=== PATIENT | female | born 1995 | race Caucasian/White ===

== ENCOUNTER 2023-03-28 13:25 | Outpatient (CLI) | payer OTHER, SELFPAY ==
--- NOTE | ~2023-03-28 | US_ITS ---
Pelvic ultrasound. Clinical History: First trimester , establish dates and viability Technique: Realtime transabdominal and transvaginal scanning of the pelvis was performed. Color flow Doppler and Doppler spectral analysis were performed. Findings: The uterus is anteverted, and contains an intrauterine gestation. [place]-rump length of 1.3 cm corresponds to an estimated gestational age of 7 weeks 4 days. heart rate is 148 bpm.. Neither ovary seen. No adnexal mass seen. There is no evidence of free fluid in the cul de sac. Impression: Live intrauterine gestation with estimated gestational age of 7 weeks 4 days. heart rate is 148 bpm. Sonographic ASPEN is 11/10/2023. Reviewed, dictated and finalized at location M. ET COUNTER Impression: Live intrauterine gestation with estimated gestational age of 7 weeks 4 days. F etal heart rate is 148 bpm. Sonographic ASPEN is 11/10/2023.
== END 2023-03-28 13:26 ==
PROVIDERS: PCP Advanced Practice Midwife; Visit Provider Advanced Practice Midwife
DX: O36.80X0 Pregnancy with inconclusive fetal viability, not applicable or unspecified (principal); Z3A.01 Less than 8 weeks gestation of pregnancy
CPT/HCPCS: 76801

== ENCOUNTER 2023-06-10 10:26 | Outpatient (CLI) | payer OTHER, SELFPAY ==
--- NOTE | ~2023-06-10 | US_ITS ---
US OB /maternal detail DATE: 06/10/2023 11:25 INDICATION: anatomy screen TECHNIQUE: Real-time imaging and Doppler analysis COMPARISON: 03/28/2023 obstetrical ultrasound FINDINGS: Live poole intrauterine gestation, fetus in breech presentation. Posterior placenta, lower margin 4.5 cm above the internal os. Subjectively normal amount of amniotic fluid. cerebral ventricles, cerebellum, cisterna magna appear normal. Normal appearance of spine . Normal nuchal fold. upper lip is normal. Four-chamber heart. heart rate 137 bpm. diaphragm is intact. Fluid demonstrated fet al stomach and urinary bladder. The kidneys are normal in appearance without hydronephrosis. Three-vessel umbilical cord with normal insertion at abdominal wall. Four extremities demonstrated. Biparietal diameter 3.86 cm; 17 weeks 5 days Head circumference 14.94 cm; 18 weeks 0 days Abdominal circumference 13.30 cm; 18 weeks 6 days Femur length 2.57 cm; 17 weeks 6 days Composite age by Hadlock formula is 18 weeks 1 day +/- 1 week 2 days with ASPEN of 11/10/2023 Estimated weight is 232.3 plus or minus 34.84 grams. EFW-GP 53.7% HC/AC 1.12 (within normal range of 1.08-1.27) FL/HC 17.22 (within normal range of 15.84-18.04) IMPRESSION: Normal anatomy screen Reviewed, dictated and finalized at Location A. Reviewed, dictated and finalized at location A. IMPRESSION: Normal anatomy screen
== END 2023-06-10 10:27 ==
PROVIDERS: PCP Nurse Practitioner Women's Health; Visit Provider Nurse Practitioner Women's Health
DX: Z36.9 Encounter for antenatal screening, unspecified (principal); Z3A.00 Weeks of gestation of pregnancy not specified
CPT/HCPCS: 76805

== ENCOUNTER 2023-09-06 08:26 | Outpatient (CLI) | payer OTHER, SELFPAY ==
--- NOTE | ~2023-09-06 | US_ITS ---
COMPLETE AND LIMITED MATERNAL ULTRASOUND (Doppler ultrasound interrogation techniques used as n eeded for this exam.) Ordering provider: Nidia Bro CNM History: . Size greater than dates . Comparison: None. Findings: : Single intrauterine fetus with heart rate measured at 153 bpm which is within normal limits. Single live fetus of Vertex presentation. Longitudinal lie. Heart (4 chambers): Seen and unremarkable. Outflow tracts are normal. -- BIOMETRICS: BPD: 78.6 mm = 31 weeks and 4 days. HC: 284.4 mm = 31 weeks and 2 days FL: 57.9 mm = 30 weeks and 2 days. AC: 268.8 mm = 31 weeks. HC/AC: 1.06 FL/BPD: 73.65 FL/AC: 21.53 Mean US age is 31 weeks for an ASPEN on November 08, 2023. Extrapolated weight is 16 47 gm. EFW/GP 41.1%. Amniotic fluid volume is subjectively within normal limits. SOLOMON is 15.5 cm. 5th percentile 9 cm and 9 5 percentile is 23 0.4 cm. No evidence for significant placental anomalies including placenta previa. Placenta is posterior. IMPRESSION: No definite abnormality. Reviewed, dictated and finalized at location A. IMPRESSION: No definite abnormality.
== END 2023-09-06 08:27 ==
PROVIDERS: PCP Advanced Practice Midwife; Visit Provider Advanced Practice Midwife
DX: O36.63X0 Maternal care for excessive fetal growth, third trimester, not applicable or unspecified (principal); Z3A.00 Weeks of gestation of pregnancy not specified
CPT/HCPCS: 76816

== ENCOUNTER 2023-10-25 09:08 | Outpatient (CLI) | payer OTHER, SELFPAY ==
--- NOTE | ~2023-10-25 | US_ITS ---
EXAMINATION: US OB follow up DATE: 10/25/2023 09:27 INDICATION: Estimated size less than expected for estimated gestational age during third trimes ter TECHNIQUE: Real-time ultrasound of the pelvis was performed. The interpreting radiologist was not pre sent for the study. COMPARISON: None. FINDINGS: There is a single living fetus in vertex presentation. The placenta is posterior and not low-lying. heart rate is 139 beats per minute (bpm). The amniotic fluid index is 19.0 cm, which is normal (5th%-95%: 7.5-24.4 cm at the weeks estimated gestational age). The following biometric data were obtained: BPD: 8.9 cm -> 35 weeks 6 days Head circumference: 33.7 cm -> 38 weeks 4 days Abdominal circumference: 33.0 cm -> 36 weeks 6 days Femur length: 7.1 cm -> 36 weeks 3 days These measurements are concordant. Head circumference to abdominal circumference ratio: 1.02 (normal range 0.92-1.05). Estimated weight: 3050 g (+/-) 457 g or 6 lbs. 12 oz. (+/-) 16 oz. IMPRESSION: 1. Single living fetus in vertex presentation with heart rate of 140 bpm. 2. Normal amniotic fluid index of 19.0 cm. 3. Estimated weight is 38th percentile by Hadlock criteria when 11/10/2023 is used as the estima [place] date of delivery (ASPEN). Please correlate with clinical information or earlier ultrasounds for mos t accurate ASPEN. Reviewed, dictated and finalized at location A. IMPRESSION: 1. Single living fetus in vertex presentation with heart rate of 140 bpm. 2. Normal amniotic fluid index of 19.0 cm. 3. Estimated weight is 38th percentile by Hadlock criteria when 11/10/2023 is used as the estimated date of delivery (ASPEN). Please correlate with clinica l information or earlier ultrasounds for most accurate ASPEN.
== END 2023-10-25 09:09 ==
LOC: MICIMG 09:09
PROVIDERS: PCP Advanced Practice Midwife; Visit Provider Advanced Practice Midwife
DX: O36.5930 Maternal care for other known or suspected poor fetal growth, third trimester, not applicable or unspecified (principal)
CPT/HCPCS: 76816

== ENCOUNTER 2023-11-11 06:02 | Inpatient (IN) | payer OTHER, SELFPAY ==
[2023-11-11] VITALS (133 sets, daily range): BP systolic 93–167; BP diastolic 45–147; PULSE 65–238; RESP 16–18; TEMP 36.2–36.8; O2SAT 79–100; BMI 38.7
[2023-11-11 07:01] LABS: Basophils Absolute Auto 0.1 K/mm3 (0.0-0.1); Basophils Percent Auto 0.4 % (0.2-1.2); Eosinophils Absolute Auto 0.1 K/mm3 (0-0.3); Eosinophils Percent Auto 0.4 % (0-4.4); Hematocrit 33.5 % (37.0-47.0); Hemoglobin 10.9 g/dL (12.0-15.0); Immature Granulocyte Absolute 0.09 K/mm3 (0.00-0.031); Immature Granulocyte Percent A 0.7 % (0-0.5); Lymphocytes Absolute Auto 1.71 K/mm3 (0.9-3.2); Lymphocytes Percent Auto 12.9 % (18.3-44.2); Mean Corpuscular HGB Conc 32.5 g/dl (32-36); Mean Corpuscular Hemoglobin 26.1 pg (26-34); Mean Corpuscular Volume 80.3 fl (80-100); Mean Platelet Volume 10.9 fl (7.4-10.4); Monocytes Absolute Auto 0.7 K/mm3 (0.1-0.6); Monocytes Percent Auto 5.1 % (2.6-8.5); Neutrophils Absolute Auto 10.7 K/mm3 (1.3-6.7); Neutrophils Percent Auto 80.5 % (45.5-73.1); Platelet Count Result 274 k/mm3 (150-375); Red Blood Count 4.17 M/mm3 (4.2-5.4); Red Cell Distribution Width 14.2 % (11.5-14.5); White Blood Count 13.3 K/mm3 (4.5-10.0)
--- NOTE | 2023-11-11 07:09 | WPDOBADMIT ---
Obstetrics - Admit Note Admission Note: record reviewed. No pertinent additions to the history and/or any subsequent changes in the physical findings that are not consistent with the expected course of the were found. Additions to the history and/or subsequent changes in the physical findings follow. None.
--- NOTE | 2023-11-11 07:16 | WPDANESEPP ---
Anes - Eval Pre Procedure Procedure: Labor epidural Date/Time: 11/11/23 07:16 Surgeon: Destiny Preop Diagnosis: Pain during labor Pre Op Diagnosis: IOL Patient Data Age: 28 Gender: F Height: Weight: Last Vital Signs Pulse 127 H 11/11/23 06:31 BP 129/84 11/11/23 06:31 Allergies Allergy/AdvReac Type Severity Reaction Status Date / Time Penicillins Allergy Rash Verified 10/06/23 12:32 Home Medications Medication Instructions Recorded Confirmed Type prenat.vits,arti,ksr-ofar-zfurk 1 tablet 10/06/23 History Laboratory Tests 11/11/23 06:51 WBC 13.3 H K/mm3 (4.5-10.0) RBC 4.17 L M/mm3 (4.2-5.4) Hgb 10.9 L g/dL (12.0-15.0) Hct 33.5 L % (37.0-47.0) MCV 80.3 fl (80-100) MCH 26.1 pg (26-34) MCHC 32.5 g/dl (32-36) RDW 14.2 % (11.5-14.5) Plt Count 274 k/mm3 (150-375) MPV 10.9 H fl (7.4-10.4) Immature Gran % (Auto) 0.7 H % (0-0.5) Neut % (Auto) 80.5 H % (45.5-73.1) Lymph % (Auto) 12.9 L % (18.3-44.2) [place] % (Auto) 5.1 % (2.6-8.5) Eos % (Auto) 0.4 % (0-4.4) Baso % (Auto) 0.4 % (0.2-1.2) Lymph # (Auto) 1.71 K/mm3 (0.9-3.2) [place] # (Auto) 0.7 H K/mm3 (0.1-0.6) Eos # (Auto) 0.1 K/mm3 (0-0.3) Baso # (Auto) 0.1 K/mm3 (0.0-0.1) Abs Immat Gran (auto) 0.09 H K/mm3 (0.00-0.031) Absolute Neuts (auto) 10.7 H K/mm3 (1.3-6.7) Absolute Nucleated RBC 0.000 K/mm3 (0.0-0.012) Nucleated RBC % 0.0 % (0.0-0.2) RPR Pending HIV 1&2 Ab/P24 Ag 4thGn Pending Blood Type Pending Antibody Screen Pending Patient hx anesthesia problems: none Family hx anesthesia problems: none Results Review: All pre-operative results and documents have been reviewed as part of the pre-operative evaluation. [facility], [facility] Family History Family History Father Hypertension Diabetes mellitus Skin cancer Social History Social History Substance use: never Spiritual care concerns: No Exam Day of Procedure 11/11/23 07:16 Patient weight: overweight Heart: regular rate and rhythm Lungs: clear to auscultation Airway: Mallampati scale Neurological: alert and oriented
[2023-11-11] MEDS: LACTATED RINGERS 1,000 ML 125 ML IV CONT ×2 (07:21→12:40)
[2023-11-11] MEDS: OXYTOCIN 30 UNITS/NS 500 ML 30 UNITS/500 ML BAG IV CONT (07:23)
--- NOTE | 2023-11-11 07:28 | LDADM ---
This patient, Smitha [place], was admitted to Labor/Delivery/Recovery 108 on 11/11/23 at 06:02. Plans for labor, pain management and were discussed with patient. Patient/family oriented to hospital policies and general routines including ID bracelet, bed and alarms, visiting hours, pain management, procedures, bathroom and other care routines, personal items, smoking policy, room service/diet and guest tray routines, infant security routines, and visiting hours. Patient/Family are encouraged to report perceived risks to care and to ask questions if they do not understand what they are told or what they should do. See OBIX for further documentation.
--- NOTE | 2023-11-11 07:48 | PM.OBPNLAB ---
Pain Control Date/time seen: 11/11/23 07:45 Pain control: tolerating well Pelvic Exam Dilation (cm): 3 Effacement (%): 70 station: -2 Amniotic membrane status: Intact Comments: head well applied. Contractions Monitor mode: External Contraction pattern: Irregular Contraction phase: Contraction Status status: Category l Assessment and Plan Pitocin rate (mU/min): 2 Assessment: induction ongoing Plan: continuous present management Comments: CNM to bedside. Discussed plan of care and option for amniotomy. Discussed risks, benefits, and expectations of breaking water. Patient is agreeable. Amniotomy performed and there was a small return of clear amniotic fluid. Patient tolerated procedure well. Anticipate vaginal . Dr. Eldon Nair updated.
[2023-11-11 08:37] LABS: HIV 1/2 Ab P24 Ag Result Negative (Negative)
[2023-11-11 08:38] LABS: Rapid Plasma Reagin Non-Reactive (NonReactive)
[2023-11-11] MEDS: ONDANSETRON INJ 4 MG/2 ML VIAL IV PUSH (10:27)
[2023-11-11] MEDS: fentaNYL CITRATE INJ (*CRX) 100 MCG/2 ML VIAL 50 MCG IV PUSH (10:29)
[2023-11-11] MEDS: LACTATED RINGERS 1,000 ML 999 ML IV CONT (10:31)
--- NOTE | 2023-11-11 17:08 | P.PCNOB_ITS ---
OB - Vaginal Delivery Note Procedure Delivery date: 11/11/23 Events: Elective Induction of Labor Induction method: Per Pitocin Protocol Delivery augmentation: Rupture of Membranes Delivery monitor: External FHT and Internal Uterine Route of delivery: Episiotomy description: None Laceration Description: Perineal - 2nd Degree (left sulcal extension) Delivery repair: vicryl Specimen: No Quantitative Blood Loss (ml): 250 Anesthesia type: Epidural Disposition: Floor Complications: No immediate complications Narrative: Smitha Arrived for elective induction at term. She was given Pitocin to achieve regular uterine contractions. She made quick change to complete dilation and pushed well with contractions. She Steadily brought the head to complete crown. She delivered the head and there was excellent restitution. There was smooth delivery of the anterior and posterior shoulders followed by the remainder of the infant. The was placed on the maternal abdomen and dried and stimulated by nursery staff. After 2 minutes of life, the cord was doubly clamped and cut. Cord blood, cord gases, and cord segment were obtained. there is spontaneous delivery of the placenta. The vulva and vaginal mucosa were inspected and a second-degree perineal /sulcal tear was identified. This was repaired in usual fashion. There was excellent uterine tone and hemostasis. All delivery counts correct. Mother and baby skin to skin in the delivery room. [place] Baby Date of : 11/11/23 Time of : 16:26 Gestational Age by Date: 40 gender: Female Weight (pounds): 8 Weight (ounces): 4 presentation: vertex position: Left Occiput Anterior Placenta delivery description: Spontaneous and Normal Configuration Cord Vessel Description: 3 Vessels and Delayed Cord Clamping score one minute: 8 score five minutes: 8
--- NOTE | 2023-11-11 17:15 | PM.OBDSVD ---
DS: Admitting Diagnosis Discharge Date 11/13/23 Admitting Diagnosis 28 y.o. at 40 weeks 5 days. IOL Rubella Non-Immune DS: Discharge Diagnosis Discharge Diagnosis (1) (normal spontaneous vaginal delivery): Code(s): O80 - Encounter for full-term uncomplicated delivery Status: Acute (2) Rubella non-immune status, delivered, current hospitalization: Code(s): O99.892 - Other specified diseases and conditions complicating childbirth; Z28.39 - Other underimmunization status Status: Acute (3) Patient is a currently breast-feeding mother: Code(s): Z39.1 - Encounter for care and examination of lactating mother Status: Acute OB - DS: Summary Hospital Course Hospital Course: Uncomplicated OB Procedures : Ultrasound OB Procedures Intrapartum: Spontaneous Vag Delivery OB Procedures: : None and Rubella lg Peripartum Data Infant Delivery Method: Natural Vaginal Laceration Description: Perineal - 2nd Degree (left sulcal extension) Episiotomy description: None complications: none Status at Discharge Functional status at discharge: independent ambulation Overall status at discharge: patient is progressing back to baseline Time Spent with Patient Time attestation: Total time spent providing and/or coordinating discharge services: Exam Narrative: Alert and oriented. Mood is pleasant and cooperative. Perineum with minimal edema. Fundus firm and below umbilicus. Const: General: cooperative, healthy appearing, no acute distress and alert Orientation/consciousness: patient oriented x3 Limitations: no limitations Resp: Effort & Inspection: normal respiratory effort and able to speak in complete sentences Cardio: Rate: regular rate GI: Inspection: normal to inspection : General: Yes bladder normal to palpation External Female Exam: other (lochia WNL) Other: Fundus firm and below U Skin: General skin exam: normal color and no rashes or lesions noted Neuro: General: patient oriented x3 and moves all extremities Cognition (Neuro): normal cognition Extrem: General: normal to inspection and no calf tenderness Psych: Appearance: grossly normal Mental Status: mental status grossly normal Affect: normal affect Thought process: Normal thought process present DS: Data Data Completed and Pending Labs on day of discharge: Labs from last 24 hours 11/11/23 06:51 WBC 13.3 H RBC 4.17 L Hgb 10.9 L Hct 33.5 L MCV 80.3 MCH 26.1 MCHC 32.5 RDW 14.2 Plt Count 274 MPV 10.9 H Immature Gran % (Auto) 0.7 H Neut % (Auto) 80.5 H Lymph % (Auto) 12.9 L [place] % (Auto) 5.1 Eos % (Auto) 0.4 Baso % (Auto) 0.4 Lymph # (Auto) 1.71 [place] # (Auto) 0.7 H Eos # (Auto) 0.1 Baso # (Auto) 0.1 Abs Immat Gran (auto) 0.09 H Absolute Neuts (auto) 10.7 H Absolute Nucleated RBC 0.000 Nucleated RBC % 0.0 RPR Non-reactive HIV 1&2 Ab/P24 Ag 4thGn Negative Blood Type A Positive Antibody Screen Negative Discharge Plan Discharge Attending physician on discharge: Marbella Dixon Consulting providers: Nidia Bro Discharging Clinician: Nidia Bro Anticipated Discharge Date/Time: 11/11/23 17:19 Patient Disposition: Home, Self-Care Activity: may shower and pelvic rest Diet: regular Wound Care Instructions: follow printed instructions Discharge Instructions: Continue taking your vitamin and any other supplements as previously directed (Examples: Iron, Vitamin D). You may take Tylenol 1000mg over the counter every 6 hours as needed for pain. Do not exceed 4000mg of Tylenol daily. You may continue using tucks pads and dermoplast spray if needed for a few more days. Depression Notify provider for signs or symptoms. These may include- Feelings: Feeling anxious, angry, hopeless, guilt, or loss of interest/pleasure in activities you normally enjoy. Mood swings
--- NOTE | 2023-11-11 19:11 | OBPPTRN ---
Patient transferred to post room #286 via w/c. Support person present. Oriented to unit, room, information board, rooming in, admission packet and security measures. Patient verbalizes understanding.
[2023-11-12 03:50] VITALS: BP 108/70; PULSE 87; RESP 16; TEMP 36.9
[2023-11-12 04:39] LABS: Hematocrit 30.4 % (37.0-47.0); Hemoglobin 9.8 g/dL (12.0-15.0)
[2023-11-12 07:45] VITALS: BP 130/80; PULSE 94; RESP 18; TEMP 37.2; O2SAT 97
--- NOTE | 2023-11-12 08:00 | PM.OBPNVD ---
OB - PN: Subj Subjective Date/time seen: 11/12/23 08:00 Interval history: Post Day 1 from . Doing well. Urinating without difficulty. Denies passing any large clots. Denies dizziness with ambulating. Tolerating po food and fluids. Bonding with . Patient comments: pain well controlled baby status: nursing well feeding status: exclusively breast feeding OB - PN: Obj Data Labs 11/12/23 03:22 Labs: Laboratory Results - last 24 hr 11/11/23 11/12/23 06:51 03:22 Hgb 9.8 L Hct 30.4 L RPR Non-reactive HIV 1&2 Ab/P24 Ag 4thGn Negative OB - PN A/P Assessment and Plan (1) (normal spontaneous vaginal delivery): Code(s): O80 - Encounter for full-term uncomplicated delivery Status: Acute (2) Rubella non-immune status, delivered, current hospitalization: Code(s): O99.892 - Other specified diseases and conditions complicating childbirth; Z28.39 - Other underimmunization status Status: Acute Assessment and Plan: Plan MMR on Discharge (3) Patient is a currently breast-feeding mother: Code(s): Z39.1 - Encounter for care and examination of lactating mother Status: Acute Plan day: 1 Plan: routine care Time Spent With Patient Time: Total time spent is greater than 50% in coordination of care (as documented) at patient's floor/unit and/or counseling patient: Review of Systems Review of Systems: All systems reviewed & are unremarkable except as noted in HPI and below Exam Narrative: Alert and oriented. Mood is pleasant and cooperative. Perineum with minimal edema. Fundus firm and below umbilicus. Const: General: cooperative, healthy appearing, no acute distress and alert Orientation/consciousness: patient oriented x3 Limitations: no limitations Resp: Effort & Inspection: normal respiratory effort and able to speak in complete sentences Cardio: Rate: regular rate GI: Inspection: normal to inspection : General: Yes bladder normal to palpation External Female Exam: other (lochia WNL) Bimanual exam- vagina & uterus: bladder normal to palpation Other: Fundus firm and below U Skin: General skin exam: normal color and no rashes or lesions noted Neuro: General: patient oriented x3 and moves all extremities Cognition (Neuro): normal cognition Extrem: General: normal to inspection and no calf tenderness Psych: Appearance: grossly normal Mental Status: mental status grossly normal Affect: normal affect Thought process: Normal thought process present
[2023-11-12] MEDS: IBUPROFEN 600 MG TABLET PO ×2 (08:07→16:58)
[2023-11-12] MEDS: DOCUSATE SODIUM 100 MG CAPSULE PO ×2 (08:07→16:58)
[2023-11-12] MEDS: MULTIVIT/MIN/PREN/FOL AC/IRON TABLET 1 TAB PO (08:07)
[2023-11-12] MEDS: POLYSACCHARIDE IRON COMPLEX 150 MG CAPSULE PO ×2 (08:07→16:58)
--- NOTE | 2023-11-12 10:27 | WPDANLDPN2 ---
Anes-Prog Note L&D Date/Time: 11/12/23 10:27 Comfortable throughout: labor Neuraxial method: epidural Epidural/Spinal procedure site: clean & non-tender Neuro status: Neuro function grossly intact. Cardiovascular status: normal Respiratory status: normal Airway patency: baseline Mental status: baseline Post-Op hydration status: normal Vital Signs: Last Vital Signs Temp 99.0 F 11/12/23 07:45 Pulse 94 11/12/23 07:45 Resp 18 11/12/23 07:45 BP 130/80 11/12/23 07:45 Pulse Ox 97 11/12/23 07:45 O2 Del Method Room Air 11/11/23 19:30 Pain score (VAS): 3 I/O: Intake & Output 11/11/23 11/12/23 11/12/23 23:59 07:59 15:59 Intake Total 218.2 Output Total 750 Balance -531.8 Post-procedural complaints: other (pt has history of sciatic pain, primarily to right side. pt states that since delivery she has experienced left sided sciatic pain.) Patient feedback: Patient satisfied with anesthetic care.
[2023-11-12 12:00] VITALS: BP 134/89; PULSE 96; RESP 16; TEMP 36.6; O2SAT 98
[2023-11-12 20:00] VITALS: BP 127/87; PULSE 103; RESP 18; TEMP 36.4
[2023-11-13 07:53] VITALS: BP 118/67; PULSE 82; RESP 20; TEMP 36.7; O2SAT 99
[2023-11-13] MEDS: POLYSACCHARIDE IRON COMPLEX 150 MG CAPSULE PO (08:41)
[2023-11-13] MEDS: DOCUSATE SODIUM 100 MG CAPSULE PO (08:41)
[2023-11-13] MEDS: MEASLES,MUMPS,RUBELLA VACCINE 0.5 ML VIAL SUB-Q (08:42)
[2023-11-13] MEDS: MULTIVIT/MIN/PREN/FOL AC/IRON TABLET 1 TAB PO (08:42)
[2023-11-13] MEDS: IBUPROFEN 600 MG TABLET PO (08:42)
--- NOTE | 2023-11-13 10:52 | PM.OBPNVD ---
OB - PN: Subj Subjective Date/time seen: 11/13/23 10:52 Interval history: Post Day 2 from . Doing well. Urinating without difficulty. Denies passing any large clots. Denies dizziness with ambulating. Tolerating po food and fluids. Bonding with . Reports infant feeding better than yesterday. Patient comments: pain well controlled [place] baby status: nursing well feeding status: exclusively breast feeding OB - PN: Obj Data Labs 11/12/23 03:22 OB - PN A/P Assessment and Plan (1) (normal spontaneous vaginal delivery): Code(s): O80 - Encounter for full-term uncomplicated delivery Status: Acute (2) Rubella non-immune status, delivered, current hospitalization: Code(s): O99.892 - Other specified diseases and conditions complicating childbirth; Z28.39 - Other underimmunization status Status: Acute Assessment and Plan: MMR prior to DC (3) Patient is a currently breast-feeding mother: Code(s): Z39.1 - Encounter for care and examination of lactating mother Status: Acute Plan day: 2 Plan: discharge home Time Spent With Patient Time: Total time spent is greater than 50% in coordination of care (as documented) at patient's floor/unit and/or counseling patient: Review of Systems Review of Systems: All systems reviewed & are unremarkable except as noted in HPI and below Exam Narrative: Alert and oriented. Mood is pleasant and cooperative. Perineum with minimal edema. Fundus firm and below umbilicus. Const: General: cooperative, healthy appearing, no acute distress and alert Orientation/consciousness: patient oriented x3 Limitations: no limitations Resp: Effort & Inspection: normal respiratory effort and able to speak in complete sentences Cardio: Rate: regular rate GI: Inspection: normal to inspection : General: Yes bladder normal to palpation External Female Exam: other (lochia WNL) Other: Fundus firm and below U Skin: General skin exam: normal color and no rashes or lesions noted Neuro: General: patient oriented x3 and moves all extremities Cognition (Neuro): normal cognition Extrem: General: normal to inspection and no calf tenderness Psych: Appearance: grossly normal Mental Status: mental status grossly normal Affect: normal affect Thought process: Normal thought process present
--- NOTE | 2023-11-13 12:21 | PC.NURSE ---
Patient instructed on viewing the discharge video Mother & Baby Care, The First Two Weeks . Patient was given the opportunity and encouraged to ask questions. Patient verbalized understanding of information shared and has been given the mother/baby guide for home reference.
[2023-11-14 08:34] VITALS: BP 126/85; PULSE 96; RESP 18; TEMP 36.7; O2SAT 100
--- NOTE | 2023-11-14 08:50 | PC.NURSE ---
In- 849 Out- 949 Reason for visit: Difficulty latching and maintaining latch History: Patient is a who was discharged over the weekend. Mother and infant here for follow up visit with questions about latching and maintaining a latch while . Mother is currently using a nipple shield given for flat nipples. Mother states that the nipple shield is working well, however, waking and maintaining a latch is an issue. falls asleep on the breast and will not complete a feeding after 3-4 sucks. was due to eat at this time, this RN assisted mother placing to breast. Latch assist was used to help draw out the nipple. Mother handles infant excellent. Infant was very sleepy and multiple attempts made to fully arouse to feed such as undressing , diaper change, wet wipe to belly, baby sit ups . Once infant was awake she did latch to the left breast with nipple shield in place and suck for short periods of time, while nursing, multiple swallows were heard. Infant fell asleep at the breast. Discussed with mother that due to infants weight loss, doing a [id number] feeding plan would be best until infant is back to weight and seen by PCP. Mother was educated about feeding plan. Advised mother to place to breast as much as she can and continue pumping every 2-3 hours for 15 minutes. To assure that infant recieved a full feeding, this RN was present for mother bottle feeding 20cc of pumped breast milk, tolerated the feeding well. Additionally, mother was educated about pace feeding . Handouts were provided for resources to look back at once she is at home (pumping, hand expression, paced feeding, how to wake a sleepy baby, how to know if baby is getting enough). Infant History: Infant was born at 40 weeks 5 days. 8 at 1 minute of life, 8 at 5 minutes of life. No significant birthing event. Mother had a scheduled induction for term. Mother had no significant history. was discharged as a well baby with no concerns. Observations: Parents having difficulty waking and keeping baby awake for feedings. weight: 8lbs 4oz Lowest weight: 7lb 8oz Last weight: 7lb 8oz Plan of Care: [id number] feeding plan until seen by PCP Follow up plans: Follow up with Barbara Stewart at [facility]
== END 2023-11-13 13:30 | disposition home or self-care (01) | DRG 807 ==
LOC: ANHLDR 17:19 → ANHOB2 19:48
PROVIDERS: Advanced Practice Midwife; Admitting Provider Obstetrics & Gynecology Gynecology; Visit Provider Obstetrics & Gynecology Gynecology
DX: O70.1 Second degree perineal laceration during delivery (principal); Z37.0 Single live birth; Z3A.40 40 weeks gestation of pregnancy; Z28.39 Other underimmunization status
CPT/HCPCS: 36415; 85014; 85018; 85025; 86592; 86703; 86850; 86900; 86901; 90710; A9270; G0432; J2405; J2590; J2795; J3010; J7120

== ENCOUNTER 2023-11-19 12:41 | Outpatient (CLI) | payer OTHER, SELFPAY ==
--- NOTE | 2023-11-19 14:15 | PC.NURSE ---
In- 1240 Out- 1345 Reason for visit: Sleepy reluctant to feed infant, latch issues, nipple shield use for mom, weight concerns. History: Mom Smitha had an uncomplicated vaginal delivery on 11/11/23. Mom reports no significant breast or medical history. She had a vaginal delivery with no major blood loss and pushed for 45 min. She takes no medications, eats a regular diet, and reports she is feeling rested and denies feeling anxious or depressed. She uses a nipple shield most of the time to help latch and feed , and she also pumps regularly to supplement infant. History: Infant was born [birth year] vaginally. She weighed 8lb 4 oz at . She was term 40 weeks +5 days. Mom reports her jaundice levels were WNL at her last pedi appointment. Infants lowest weight was 7lb 8oz. Mom reports she feeds about 8 times in 24 hour period. Observations: Moms breasts are WNL except for bilateral flat nipples. Mom reports when she pumps she typically gets around 60-85 ml in total. Mom latched infant to the right breast after a few repeated attempts, maintained an optimal latch. Infants chin is a little recessed. Her suck reflex is strong, her palate is WNL, her tongue is able to protrude over her gum line. Her latch is assymetric, no dimpling of the chin, & rhythmic with a suck to swallow ratio of 2:1 and 3:1 at times. Her top lip was not correctly flanged out. Infants attempt 45 min with many audible swallows heard, stimulated to continue sucking at times during feeding session. weight: 8lb 4 oz Lowest weight: 7lb 8 oz Last weight: 7lb 11oz Pre-feed weight: 7lb 10.7oz Post-feed weight: 7lb 11.9 oz Plan of Care: Continue to attempt to breast feed infant first with or without nipple shield. Supplement with EBM or formula after breast feeding session if it is less than 15-20 min of rhythmic suckling. Instead of 8 feedings in a 24 hour period, attempt to get at least 10 sessions in. Reviewed early feeding cues with parents. Reviewed with parents that for a 7 lb 10 oz baby the daily breastmilk volume requirement in ounces is 19.25 oz. For a baby losing weight and trying to catch up that volume is 20.56 ounces to 22.88 ounces. Reviewed this information with mom and dad to make the catch up volume their target goal for babies in 24 hrs. Reviewed using a nipple shield and instructed mom on how to wean off of one if she so desires. Reivewed protecting her milk supply with added pumping sessions to ensure her supply does not diminish over time with prolonged use of the nipple shield. Follow up plans: Mom reports she has a follow up with her infants air pollution compliance inspector wednesday 11/22. Mom encouraged to keep this appointment for a weight check and call if she needs further assistance or has follow up questions.
== END 2023-11-19 12:42 | disposition home or self-care (01) ==
PROVIDERS: PCP Advanced Practice Midwife; Visit Provider Advanced Practice Midwife
DX: Z39.1 Encounter for care and examination of lactating mother (principal)
CPT/HCPCS: 99212; G0463